=== PATIENT | female | born 1985 | race Two or more races ===

== ENCOUNTER 2017-01-08 21:03 | Emergency (ER) | payer OTHER ==
[~2017-01-08] VITALS: Ht 170.2 cm; Wt 74.8 kg
[~2017-01-08 21:03] MED LIST: LEVO50TA8 PO; PROP20TA7 PO
--- NOTE | 2017-01-08 21:45 | NUR ---
Pt to room, changed into gown and placed on monitor. Pt NSR. Pt c/o left sided chest pressure radiating down left arm with numbness to fingers. Resp even and unlabored. Pt denies SOB, denies N/V, denies dizziness. Pt seen by MD. EKG obtained given to MD, labs drawn and sent. IV established. Pt resting in position of comfort for self. Family at bedside.
[2017-01-08 21:50] LABS: BASOPHILS % (AUTO) 0.6 % (0.0-2.0); EOSINOPHILS # (AUTO) 0.2 K/uL (0.0-0.7); EOSINOPHILS % (AUTO) 2.2 % (0.0-7.0); HEMATOCRIT 39.8 % (37-47); HEMOGLOBIN 13.6 G/DL (12.0-16.0); LYMPHOCYTES # (AUTO) 2.2 K/UL (0.8-4.8); LYMPHOCYTES % (AUTO) 30.4 % (20.5-51.5); MEAN CORPUSCULAR HEMOGLOBIN 29.7 UUG (27.0-31.0); MEAN CORPUSCULAR HGB CONC 34 g/dL (32.0-37.0); MONOCYTES # (AUTO) 0.5 K/UL (0.1-1.30); MONOCYTES % (AUTO) 7.3 % (0.0-11.0); NEUTROPHILS # (AUTO) 4.4 K/UL (1.8-8.9); NEUTROPHILS % (AUTO) 59.5 % (38.5-71.5); PLATELET COUNT (AUTO) 429 K/UL (150-450); RED BLOOD CELL COUNT(AUTO) 4.57 MIL/UL (4.2-5.4); WHITE BLOOD COUNT (AUTO) 7.3 K/UL (4.0-11.2)
[2017-01-08 22:04] LABS: CREATININE 0.7 mg/dL (0.6-1.3); POTASSIUM 3.5 mmol/L (3.5-5.1)
[2017-01-08] MEDS ORDERED: KETOROLAC TROMETHAMINE 15 MG INJ IVP ONE (22:15)
[2017-01-08] MEDS ORDERED: ASPIRIN 81 MG TAB.CHEW PO ONE (22:15)
[2017-01-08 22:18] LABS: BILIRUBIN,DIRECT 0.1 mg/dL (0.0-0.2); BILIRUBIN,TOTAL 0.3 mg/dL (0.2-1.0); TOTAL PROTEIN, SERUM 8.4 g/dL (6.4-8.2)
--- NOTE | 2017-01-08 22:31 | NUR ---
Pt c/o left sided chest pain and discomfort. MD notified and pt medicated, will monitor for effects of medication. Pt resting in position of comfort for self.
[2017-01-08] MEDS ORDERED: KETOROLAC TROMETHAMINE 15 MG INJ ONE (22:38)
[2017-01-08] MEDS ORDERED: ASPIRIN 81 MG TAB.CHEW ONE (22:38)
[2017-01-08] MEDS ORDERED: LORAZEPAM 0.5 MG TABLET PO ONE (23:15)
--- NOTE | 2017-01-08 23:24 | NUR ---
Pt cont to have chest pressure after previous medication. Sts pressure is a 4-5/10. MD notified and pt medicated. Will monitor for effects of medication. Pt resting in position of comfort for self.
[2017-01-08] MEDS ORDERED: LORAZEPAM 0.5 MG TABLET ONE (23:30)
--- NOTE | 2017-01-09 00:14 | NUR ---
Pt sts her chest pressure decreased down to a 2/10 with previous medication but now has intermittently increased to a 4-5/10. Pt remains NSR on monitor. MD notified, awaiting further orders. Resp even and unlabored. Pt resting in position of comfort for self. Family remains at bedside.
--- NOTE | 2017-01-09 00:50 | NUR ---
Pt resting in position of comfort, pressure self resolving. Repeat troponin drawn and sent.
--- NOTE | 2017-01-09 01:57 | NUR ---
Pt stable for discharge per MD. IV dc'd, catheter intact. Drsg applied. No problems noted to site. Pt and family given ACI. Both verbalized understanding of dc instructions. 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
[2017-01-09 01:58] VITALS: BP 111/83
== END 2017-01-09 01:59 | disposition home or self-care (01) ==
LOC: ER 21:04
DX: R07.89 Other chest pain (principal); F41.9 Anxiety disorder, unspecified; F17.200 Nicotine dependence, unspecified, uncomplicated; Z88.0 Allergy status to penicillin
CPT/HCPCS: 36415 ×2; 71010; 80048; 80076; 83605; 83880; 84484 ×2; 84703; 85025; 85379; 85730; 87040 ×2; 93005; 96374; 99285; A4663; J1885; 70030-TC

== ENCOUNTER 2024-01-06 11:21 | Emergency (ER) | payer OTHER ==
[~2024-01-06] VITALS: Ht 167.6 cm; Wt 81.6 kg
[2024-01-06 12:12] LABS: BASOPHILS % (AUTO) 0.3 % (0.0-2.0); EOSINOPHILS # (AUTO) 0.1 K/uL (0.0-0.7); EOSINOPHILS % (AUTO) 1.6 % (0.0-7.0); HEMATOCRIT 37.6 % (31.2-41.9); HEMOGLOBIN 12.6 g/dL (10.9-14.3); LYMPHOCYTES # (AUTO) 1.9 K/uL (0.8-4.8); LYMPHOCYTES % (AUTO) 31.4 % (20.5-51.5); MEAN CORPUSCULAR HEMOGLOBIN 29.2 uug (24.7-32.8); MEAN CORPUSCULAR HGB CONC 34 g/dL (32.3-35.6); MEAN CORPUSCULAR VOLUME 87.2 fL (75.5-95.3); MONOCYTES # (AUTO) 0.5 K/uL (0.1-1.30); MONOCYTES % (AUTO) 8.3 % (0.0-11.0); NEUTROPHILS # (AUTO) 3.5 K/uL (1.8-8.9); NEUTROPHILS % (AUTO) 58.4 % (38.5-71.5); PLATELET COUNT (AUTO) 398 K/uL (179-408); RED BLOOD CELL COUNT(AUTO) 4.31 MIL/uL (3.63-4.92)
[2024-01-06 12:31] LABS: ALANINE AMINOTRANSFERASE 31 U/L (14-59); ALBUMIN 3.8 g/dL (3.4-5.0); ALKALINE PHOSPHATASE 77 U/L (50-136); ASPARTATE AMINOTRANSFERASE 12 U/L (15-37); BILIRUBIN,DIRECT 0.1 mg/dL (0.0-0.2); BILIRUBIN,TOTAL 0.4 mg/dL (0.2-1.0); CALCIUM 9.2 mg/dL (8.5-10.1); CARBON DIOXIDE 25 mmol/L (21-32); CHLORIDE 101 mmol/L (98-107); CREATININE 0.6 mg/dL (0.6-1.3); GLUCOSE 99 mg/dL (74-106); NT-PRO BNP 49 pg/mL (0-125); POTASSIUM 4.1 mmol/L (3.5-5.1); SODIUM SERUM 136 mmol/L (136-145); UREA NITROGEN, BLOOD 12 mg/dL (7-18)
[2024-01-06 12:36] LABS: DIFFERENTIAL COMMENT 1
[2024-01-06] MEDS ORDERED: NABU-140 PO (13:19)
[2024-01-06] MEDS: hydrOXYzine HCL 10 MG TABLET PO ONE (13:23)
[2024-01-06] MEDS ORDERED: hydrOXYzine HCL 10 MG TABLET ONE (13:32)
[2024-01-06 13:43] VITALS: BP 127/77; O2SAT 99
== END 2024-01-06 13:41 | disposition home or self-care (01) ==
LOC: ER 11:21
DX: M54.12 Radiculopathy, cervical region (principal); E03.9 Hypothyroidism, unspecified; R10.2 Pelvic and perineal pain; F41.9 Anxiety disorder, unspecified; F17.200 Nicotine dependence, unspecified, uncomplicated; Z79.899 Other long term (current) drug therapy; Z60.2 Problems related to living alone; Z88.0 Allergy status to penicillin
CPT/HCPCS: 36415; 71045; 72125; 84484; 85025; 85730; 93005; A4606; A4663